=== PATIENT | female | born 1965 | race Caucasian/White ===

== ENCOUNTER 2018-01-14 05:51 | Day surgery (SDC) | payer BC ==
[2018-01-14] MEDS ORDERED: LIDOCAINE 2% (SDV) 5 ML INJ (07:53)
[2018-01-14] MEDS ORDERED: MIDAZOLAM 1 MG/ML 2 ML INJ (07:53)
[2018-01-14] MEDS ORDERED: PROPOFOL 20 ML (07:53)
== END 2018-01-14 11:18 | disposition home or self-care (01) ==
LOC: GIL 05:51
DX: Z12.11 Encounter for screening for malignant neoplasm of colon (principal); K64.8 Other hemorrhoids; E11.9 Type 2 diabetes mellitus without complications; E78.5 Hyperlipidemia, unspecified; I10 Essential (primary) hypertension
CPT/HCPCS: 45378; 82962